=== PATIENT | male | born 1980 | race Caucasian/White ===

== ENCOUNTER 2020-04-23 06:54 | Day surgery (SDC) | payer BC, OTHER ==
[2020-04-19 19:00] VITALS: BMI 33.7
[2020-04-23] MEDS ORDERED: MIDAZOLAM HCL 2 MG/2 ML SINGLE DOSE VIAL ONE (08:22)
[2020-04-23] MEDS ORDERED: ROPIVACAINE HCL 0.5% 30ML VIAL ONE (08:22)
[2020-04-23] MEDS ORDERED: PROPOFOL 20 ML ONE (08:46)
[2020-04-23] MEDS ORDERED: ceFAZolin SODIUM 1 GM VIAL ONE (08:46)
[2020-04-23] MEDS ORDERED: ONDANSETRON 4 MG/2 ML VIAL IVPUSH PRN (08:59)
[2020-04-23] MEDS ORDERED: oxyCODONE HCL 5 MG TABLET PO PRN (08:59)
[2020-04-23] MEDS ORDERED: IBUPROFEN 800 MG/8 ML IJ IVPB PRN (08:59)
[2020-04-23] MEDS ORDERED: LACTATED RINGERS SOLUTION 1,000 ML IV SCH (09:00)
[2020-04-23] MEDS ORDERED: DEXAMETHASONE SOD PHOSPHATE 4 MG/1 ML VIAL ONE (09:38)
[2020-04-23] MEDS ORDERED: ONDANSETRON 4 MG/2 ML VIAL ONE (09:38)
[2020-04-23 13:53] VITALS: BP 114/60; PULSE 78; TEMP 98.2
--- NOTE | 2020-04-27 08:48 | OP ---
DATE OF OPERATION: 04/23/2020 LOCATION: [facility]. SURGEON: Roldan Hidalgo MD GOLF TEACHER: MARIA E Grimes PREOPERATIVE DIAGNOSES: 1. Left shoulder instability. 2. Left shoulder rotator cuff tear. 3. Left shoulder adhesive capsulitis. 4. Left shoulder impingement syndrome. 5. Left shoulder acromioclavicular joint disease. 6 . Left shoulder superior labral tear, anterior, posterior synovitis. POSTOPERATIVE DIAGNOSES: 1. Left shoulder instability. 2. Left shoulder rotator cuff tear. 3. Left shoulder adhesive capsulitis. 4. Left shoulder impingement syndrome. 5. Left shoulder acromioclavicular joint disease. 6 . Left shoulder superior labral tear, anterior, posterior synovitis. PROCEDURE: 1. Left shoulder arthroscopy with anterior labral repair and capsulorrhaphy. CPT code 83369. 2. Left shoulder arthroscopy with rotator cuff repair, CPT code 99399. 3. Left shoulder arthroscopy with lysis and resection of adhesions, CPT code 52466. 4. Left shoulder arthroscopy with subacromial decompression, CPT code 45366. 5. LEFT shoulder arthroscopy with resection of clavicle, acromioclavicular joint, CPT code 06382. 6. Left shoulder arthroscopy with debridement, CPT code 57705. FINDINGS: 1. Glenohumeral synovitis. 2. Anterior labral tear. 3. Superior labral tear anterior, posterior with posterior extension. 4. Minor biceps fraying. 5. Full-thickness rotator cuff tear, central portion of supraspinatus. 6. Type 2 acromion with anterior spurring. 7. degenerative joint disease. 8. Thickened scar tissue of subacromial space laterally. REPAIR TYPE: Capsule was repaired creating bony bleeding bed from the 1 o'clock to 5:30 o'clock position along the anterior labrum. Three anchors were placed, and alternating mattress and simple sutures were used, with these double-loaded sutures causing reduction of the anterior capsule and securing the anterior labrum onto the glenoid surface. Repair of the rotator cuff single mattress suture was placed into the supraspinatus and secured to bleeding bone bed using Opus and Haleigh combination of suture and rotator cuff anchor. PROCEDURE: Informed consent was obtained. The patient was taken to the operating room where the upper extremity was prepped and draped in a sterile fashion. The shoulder was manipulated for a full range of motion. Posterior incision portal was made and directed to glenohumeral joint. Under direct visualization, an anterior incision and portal was made. Extensive synovitis, as well as chondral injuries throughout the glenohumeral joint were dbrided and removed. Any identified labral injuries, including superior labral tear, anterior and posterior, and anterior labrum torn portions were removed as well. Rotator cuff was visualized and noted to have full-thickness tear. The edges were debrided. Posterior incision portal was redirected to subacromial space where a lateral incision portal was made. Excessive and thickened scar tissue noted throughout the subacromial space, including bursal and scar tissue, were removed. The type 2 acromion was converted into a flattened type 1 using a priyank for subacromial decompression. Distal inferior spur at the distal clavicle was also dbrided with the use of accessory portal in the AC joint. The edges of the rotator cuff were identified. Sutures were placed into the rotator cuff and secured using anchors throughout the greater tuberosity. Prior to securing, a bleeding bed was made using a small priyank, creating a bleeding surface of the rotator cuff insertion. The shoulder was then drained. A single suture as placed on all portals and a sterile dressing was placed. The patient was transferred to the recovery room without complication. ADDENDUM: Prior to the rotator cuff tear, the anterior labrum was prepared as stated above. A small bur was used to create a bleeding surface on the anterior labrum. Anchors were placed in the 5 oclock, 3:30 and 1:30 position with alternating mattress and simple sutures creating an anterior bump which joined the anterior labrum and reducing the anterior capsule. The PA listed above was present and assisted at surgery. Their presence was absolutely medically necessary for the completion of the procedure. They helped hold the arthroscopy, pass instruments (and implants when indicated) and the procedure could not have been completed without their assistance. ROLDAN HIDALGO M.D. [id number]
--- NOTE | 2020-04-28 16:42 | PATH ---
Surgical Pathology Report Patient Name: NIDA BULL Med. Rec. #: [id number] /Age/Gender: 1980 (Age: 39) / M Account: [id number] Location: [facility] Taken: 04/23/2020 Received: 04/23/2020 Reported: 04/28/2020 Physicians: Roldan Priest M.D. Specimen(s) Received LEFT SHOULDER SHAVINGS Clinical History Left shoulder instability and impingement syndrome Final Diagnosis SHOULDER SHAVINGS, LEFT, ARTHROSCOPY, LABRUM REPAIR, ROTATOR CUFF REPAIR, SUBACROMIAL DECOMPRESSION: FRAGMENTS OF BENIGN CARTILAGE, DENSE FIBROCONNECTIVE TISSUE, ADIPOSE TISSUE, AND SKELETAL MUSCLE. Electronically Signed Simi Roper M.D. Gross Description Received in formalin, labeled "left shoulder shavings," is a 4.5 x 4.5 x 0.4 cm. aggregate of friend-yellow soft tissue fragments. A account development representative portion is submitted in one cassette. 04/27/2020 [facility]04/27/2020
== END 2020-04-23 13:30 | disposition home or self-care (01) ==
LOC: FASU 06:54
PROVIDERS: ATTEND Orthopaedic Surgery
PROC: 0RNK4ZZ Release Left Shoulder Joint, Percutaneous Endoscopic Approach (ICD-10-PCS; 2020-04-23)
PROC: 0RQK4ZZ Repair Left Shoulder Joint, Percutaneous Endoscopic Approach (ICD-10-PCS; 2020-04-23)
PROC: 0RBK4ZZ Excision of Left Shoulder Joint, Percutaneous Endoscopic Approach (ICD-10-PCS; 2020-04-23)
PROC: 0PBB4ZZ Excision of Left Clavicle, Percutaneous Endoscopic Approach (ICD-10-PCS; 2020-04-23)
PROC: 0LQ24ZZ Repair Left Shoulder Tendon, Percutaneous Endoscopic Approach (ICD-10-PCS; principal; 2020-04-23 09:51)
DX: M75.122 Complete rotator cuff tear or rupture of left shoulder, not specified as traumatic (principal); M25.312 Other instability, left shoulder; M75.02 Adhesive capsulitis of left shoulder; M75.42 Impingement syndrome of left shoulder; M19.012 Primary osteoarthritis, left shoulder; S43.432A Superior glenoid labrum lesion of left shoulder, initial encounter; X58.XXXA Exposure to other specified factors, initial encounter; Y93.9 Activity, unspecified; Y92.9 Unspecified place or not applicable; M65.812 Other synovitis and tenosynovitis, left shoulder
CPT/HCPCS: 88304-TC; 94760

== ENCOUNTER 2022-06-30 20:36 | Emergency (ER) | payer BC ==
[2022-06-30 20:49] VITALS: BP 121/88; PULSE 90; RESP 20; TEMP 98.1; BMI 31.0
[2022-06-30] MEDS ORDERED: DIPHTH,PERTUSS(ACELL),TET 0.5 ML DISP.SYRIN IM ONE ×2 (21:09→21:19)
== END 2022-06-30 21:51 | disposition home or self-care (01) ==
LOC: JERFT 20:36 → JER 20:36 → JERFT 21:51
PROC: 3E0234Z Introduction of Serum, Toxoid and Vaccine into Muscle, Percutaneous Approach (ICD-10-PCS; principal; 2022-06-30)
DX: L03.115 Cellulitis of right lower limb (principal); S80.811A Abrasion, right lower leg, initial encounter
CPT/HCPCS: 90715; 99283-25

== ENCOUNTER 2025-06-16 10:35 | Emergency (ER) | payer OTHER, BC ==
[2025-06-16 10:48] VITALS: BP 137/84; PULSE 70; RESP 18; TEMP 98.2; BMI 31.5
[2025-06-16] MEDS: IBUPROFEN 600 MG TABLET (FP) PO ONE (11:04)
[2025-06-16] MEDS ORDERED: IBUPROFEN 600 MG TABLET (FP) PO ONE (11:05)
== END 2025-06-16 13:25 | disposition home or self-care (01) ==
LOC: JER 10:35
PROC: 0HQGXZZ Repair Left Hand Skin, External Approach (ICD-10-PCS; principal; 2025-06-16)
DX: S61.012A Laceration without foreign body of left thumb without damage to nail, initial encounter (principal); W23.0XXA Caught, crushed, jammed, or pinched between moving objects, initial encounter; Y99.0 Civilian activity done for income or pay
CPT/HCPCS: 73130-TC-LT-FY; 99283-25